=== PATIENT | male | born 1985 | race African-American/Black ===

== ENCOUNTER 2019-09-05 13:56 | Emergency (ER) | payer OTHER ==
[2019-09-05] MEDS ORDERED: ASPIRIN 81 MG TABLET, CHEWABLE PO ONE (14:17)
--- NOTE | 2019-09-05 14:17 | ER Document Report ---
ED Medical Screen (RME) - General Stated Complaint: CHEST PAIN Time Seen by Provider: 09/05/19 14:14 Mode of Arrival: Ambulatory Information source: Patient Notes: This 33-year-old male with history of pericarditis and hypertension presents emergency department with left-sided chest pain for the past week. Reports it comes and goes that sharp when it comes. Denies fever vomiting diarrhea. Reports he may have had a fever couple days ago. Denies cough runny nose. EKG did show sinus rhythm some ST elevation in lead I I have greeted and performed a rapid initial assessment of this patient. A comprehensive ED assessment and evaluation of the patient, analysis of test results and completion of the medical decision making process will be conducted by additional ED providers. Dictation of this chart was performed using voice recognition software; therefore, there may be some unintended grammatical errors. TRAVEL OUTSIDE OF THE [place] IN LAST 30 DAYS: No - Related Data Allergies/Adverse Reactions: No Known Allergies Allergy (Verified 09/05/19 14:14) Past Medical History Pulmonary Medical History: Reports: Hx Asthma Neurological Medical History: Reports: Hx Migraine - Immunizations Immunizations up to date: Yes Hx Diphtheria, Pertussis, Tetanus Vaccination: Yes
[2019-09-05 14:46] LABS: ABSOLUTE EOSINOPHILS # (AUTO) 0.1 10^3/uL (0.0-0.6); ABSOLUTE LYMPHOCYTES (AUTO) 1.4 10^3/uL (0.5-4.7); ABSOLUTE MONOCYTES (AUTO) 0.4 10^3/uL (0.1-1.4); ABSOLUTE NEUT (AUTO) 2.3 10^3/uL (1.7-8.2); BASOPHILS % (AUTO) 0.8 % (0-2); EOSINOPHILS % (AUTO) 1.6 % (0-6); HEMOGLOBIN 15.3 g/dL (13.5-17.0); MEAN CORPUSCULAR HEMOGLOBIN 27.3 pg (27.0-33.4); MEAN CORPUSCULAR HGB CONC 33.3 g/dL (32.0-36.0); MEAN CORPUSCULAR VOLUME 82 fl (80-97); MONOCYTES % (AUTO) 8.4 % (3-13); PLATELET COUNT 255 10^3/uL (150-450); RED BLOOD COUNT 5.61 10^6/uL (4.35-5.55); RED CELL DISTRIBUTION WIDTH 13.4 % (11.5-14.0); SEGMENTED NEUTROPHILS % (AUTO) 55.2 % (42-78); TOTAL CELLS COUNTED % (AUTO) 100 %; WHITE BLOOD COUNT 4.2 10^3/uL (4.0-10.5)
[2019-09-05 15:04] LABS: ALBUMIN 4.6 g/dL (3.5-5.0); ALKALINE PHOSPHATASE 51 U/L (38-126); ANION GAP 11 (5-19); ASPARTATE AMINO TRANSFERASE 33 U/L (17-59); BILIRUBIN,DIRECT 0.1 mg/dL (0.0-0.4); BILIRUBIN,TOTAL 0.6 mg/dL (0.2-1.3); BLOOD UREA NITROGEN 14 mg/dL (7-20); CALCIUM 10.2 mg/dL (8.4-10.2); CARBON DIOXIDE 25 mmol/L (22-30); CHLORIDE 105 mmol/L (98-107); CREATINE KINASE 161 U/L (55-170); GLUCOSE 95 mg/dL (75-110); POTASSIUM 4.1 mmol/L (3.6-5.0); TOTAL PROTEIN 7.9 g/dL (6.3-8.2)
[2019-09-05 15:17] LABS: CREATINE KINASE MB 1.07 ng/mL (<4.55)
[2019-09-05 15:18] LABS: TROPONIN I < 0.012 ng/mL
--- NOTE | 2019-09-05 15:26 | RADIOLOGY REPORT (SQ) ---
EXAM DESCRIPTION: CHEST 2 VIEWS COMPLETED DATE/TIME: 09/05/2019 3:08 pm REASON FOR STUDY: chest pain COMPARISON: PA and lateral views of the chest from 02/21/2015. EXAM PARAMETERS: NUMBER OF VIEWS: two views TECHNIQUE: Digital Frontal and Lateral radiographic views of the chest acquired. RADIATION DOSE: NA LIMITATIONS: none FINDINGS: LUNGS AND PLEURA: No consolidation, pleural effusion or pneumothorax. MEDIASTINUM AND HILAR STRUCTURES: No mediastinal or hilar contour abnormality. HEART AND VASCULAR STRUCTURES: The cardiac silhouette and pulmonary vasculature are within normal stewart its. BONES: No acute findings. HARDWARE: None. OTHER: No other finding. IMPRESSION: No acute cardiopulmonary process. TECHNICAL DOCUMENTATION: JOB ID: [id number] [employer]- All Rights Reserved Reading location - IP/workstation name: [email or web address]
--- NOTE | 2019-09-05 15:33 | EKG REPORT ---
SEVERITY:- NORMAL ECG - SINUS RHYTHM ST ELEV, PROBABLE NORMAL EARLY REPOL PATTERN : Confirmed by: Parth Harmon MD 05-Sep-2019 15:32:41
[2019-09-05] MEDS ORDERED: KETOROLAC TROMETHAMINE 60 MG/2 ML SDV IM ONE (15:56)
[2019-09-05] MEDS ORDERED: ALBUTEROL SULFATE HFA (90 MCG/PUFF) 8 GM MDI (1 MDI/ER DISP) IH ONE (15:57)
--- NOTE | 2019-09-05 15:57 | ER Document Report ---
ED General - General Chief Complaint: Chest Pain Stated Complaint: CHEST PAIN Time Seen by Provider: 09/05/19 14:14 Mode of Arrival: Ambulatory TRAVEL OUTSIDE OF THE [place] IN LAST 30 DAYS: No - HPI Notes: Patient presents 4 to 5 days of intermittent sharp pleuritic pain nonradiating with no cough congestion fevers or illnesses. Patient states she has a history of asthma and hypertension the past but does not take any medications. He states he does have a history of pericarditis but cannot tell me much about it that was diagnosed approximately 5 years ago. Otherwise no known medical history of than what discussed. Upon discussion, patient is also PERC negative. - Related Data Allergies/Adverse Reactions: No Known Allergies Allergy (Verified 09/05/19 14:14) Past Medical History - General Information source: Patient - Social History Smoking Status: Never Smoker Chew tobacco use (# tins/day): No Frequency of alcohol use: Occasional Family History: Arthritis, CVA, Hyperlipidemia, Hypertension, Other - pulmonary clots, Patient has suicidal ideation: No Patient has homicidal ideation: No - Past Medical History Cardiac Medical History: Reports: Hx Hypertension Pulmonary Medical History: Reports: Hx Asthma Neurological Medical History: Reports: Hx Migraine - Immunizations Immunizations up to date: Yes Hx Diphtheria, Pertussis, Tetanus Vaccination: Yes Review of Systems - Review of Systems Constitutional: No symptoms reported EENT: No symptoms reported Cardiovascular: See HPI Respiratory: No symptoms reported Gastrointestinal: No symptoms reported Genitourinary: No symptoms reported Male Genitourinary: No symptoms reported Musculoskeletal: No symptoms reported Skin: No symptoms reported Hematologic/Lymphatic: No symptoms reported Neurological/Psychological: No symptoms reported Physical Exam - Vital signs Vitals: Temp Pulse Resp BP Pulse Ox 98.1 F 68 16 138/78 H 96 09/05/19 14:13 09/05/19 14:13 09/05/19 14:13 09/05/19 14:13 09/05/19 14:13 - General General appearance: Appears well, Alert - HEENT Head: Normocephalic, Atraumatic - Respiratory Respiratory status: No respiratory distress Chest status: Nontender Breath sounds: Normal Chest palpation: Normal - Cardiovascular Rhythm: Regular Heart sounds: Normal auscultation Murmur: No Friction rub: No Paulette's crunch: No Gallop: None auscultated - Abdominal Inspection: Normal Distension: No distension Bowel sounds: Normal Tenderness: Nontender Course - Re-evaluation Re-evalutation: 09/05/19 15:55 EKG no concerning signs for acute STEMI or acute pericarditis because there is no NJ depression. Also, his pleuritic pain is intermittent in nature. He denies any smoking. Last congestion no recent fever. Work-up in progress this time will provide anti-inflammatories as well as an albuterol puffer and reassess 09/05/19 16:46 Symptoms improved with anti-inflammatory Toradol. All labs within normal limits no significant findings on chest x-ray no concerning findings as discussed on EKG. Will provide 5 days naproxen also provide albuterol puffer if his pleuritic pain were to re-present and he is to try an albuterol puffer to see if this helps in addition to anti-inflammatories. He is to follow-up with medical reevaluation in the next 3 to 5 days if symptoms not improving or worsening. Return precautions provided - Vital Signs Vital signs: Temp Pulse Resp BP Pulse Ox 98.1 F 68 14 122/75 96 09/05/19 14:13 09/05/19 14:13 09/05/19 16:01 09/05/19 16:01 09/05/19 14:13 - Laboratory Result Diagrams: 09/05/19 14:22 09/05/19 14:22 Laboratory results interpreted by me: 09/05/19 14:22 RBC 5.61 H - Diagnostic Test Radiology reviewed: Reports reviewed - EKG Interpretation by Me EKG shows normal: Sinus rhythm Rate: Normal Rhythm: NSR - Diffuse ST elevation with no NJ depression no ST depression as well. No concerning signs for acute STEMI or pericarditis. Discharge - Discharge Clinical Impression: Chest pain, pleuritic Condition: Good Disposition: HOME, SELF-CARE Additional Instructions: Please use 2 puffs of inhaler provided every 4 hours as needed for symptoms. Please take all anti-inflammatories as prescribed. Prescriptions: Naproxen 500 mg PO BID #10 tablet
[2019-09-05 17:03] VITALS: BP 130/93
== END 2019-09-05 17:09 | disposition home or self-care (01) ==
LOC: ER 13:56
DX: R07.81 Pleurodynia (principal); I10 Essential (primary) hypertension
CPT/HCPCS: 93005; 99285; 96372; 36415; 82553; 82550; 85025; 80053; 84484; 71046; 93010; J1885; J3490

== ENCOUNTER 2020-07-15 09:08 | Emergency (ER) | payer OTHER ==
[2020-07-15 09:25] LABS: ABSOLUTE EOSINOPHILS # (AUTO) 0.1 10^3/uL (0.0-0.6); ABSOLUTE LYMPHOCYTES (AUTO) 1.7 10^3/uL (0.5-4.7); ABSOLUTE MONOCYTES (AUTO) 0.4 10^3/uL (0.1-1.4); ABSOLUTE NEUT (AUTO) 2.3 10^3/uL (1.7-8.2); BASOPHILS % (AUTO) 0.3 % (0-2); EOSINOPHILS % (AUTO) 1.8 % (0-6); HEMATOCRIT 44.6 % (37.9-51.0); HEMOGLOBIN 15.4 g/dL (13.5-17.0); LYMPHOCYTES % (AUTO) 38.3 % (13-45); MEAN CORPUSCULAR HEMOGLOBIN 28.1 pg (27.0-33.4); MEAN CORPUSCULAR HGB CONC 34.4 g/dL (32.0-36.0); MEAN CORPUSCULAR VOLUME 82 fl (80-97); MONOCYTES % (AUTO) 8.7 % (3-13); PLATELET COUNT 258 10^3/uL (150-450); RED BLOOD COUNT 5.47 10^6/uL (4.35-5.55); RED CELL DISTRIBUTION WIDTH 13.3 % (11.5-14.0); SEGMENTED NEUTROPHILS % (AUTO) 50.9 % (42-78); TOTAL CELLS COUNTED % (AUTO) 100 %; WHITE BLOOD COUNT 4.5 10^3/uL (4.0-10.5)
[2020-07-15] MEDS ORDERED: KETOROLAC TROMETHAMINE INJ/PF 30 MG/1 ML SDV IV ONE (09:35)
[2020-07-15 09:42] LABS: ALBUMIN 4.5 g/dL (3.5-5.0); ALKALINE PHOSPHATASE 53 U/L (38-126); ANION GAP 8 (5-19); ASPARTATE AMINO TRANSFERASE 28 U/L (17-59); BILIRUBIN,DIRECT 0.3 mg/dL (0.0-0.4); BILIRUBIN,TOTAL 0.8 mg/dL (0.2-1.3); BLOOD UREA NITROGEN 9 mg/dL (7-20); CALCIUM 9.7 mg/dL (8.4-10.2); CARBON DIOXIDE 28 mmol/L (22-30); CHLORIDE 102 mmol/L (98-107); CREATINE KINASE 121 U/L (55-170); GLUCOSE 93 mg/dL (75-110); POTASSIUM 4.1 mmol/L (3.6-5.0); TOTAL PROTEIN 7.7 g/dL (6.3-8.2)
--- NOTE | 2020-07-15 09:44 | ER Document Report ---
ED General - General Chief Complaint: Chest Pain Stated Complaint: ABDOMINAL PAIN Time Seen by Provider: 07/15/20 09:16 Primary Care Provider: GLORIA EMERSON PA-C [Primary Care Provider] - Follow up as needed TRAVEL OUTSIDE OF THE [place] IN LAST 30 DAYS: No - HPI Notes: Chief complaint: Chest pain History of present illness: 34-year-old male seen at [facility] urgent care by Dr. De Jesus with chest pain and sent to the ED by EMS for further evaluation. Patient reports onset of discomfort about 5 days ago and it is intermittent sharp in nature and localized to the left anterior chest area without radiation. Intensity 3/10. It is aggravated by movement, deep breathing, and touching the area. There is no associated cough, shortness of breath, diaphoresis, hemoptysis or any radiation of the pain. Not related to exertion. Patient does occasionally have some reflux symptoms although this is not bothering him at the moment. Treating physician at urgent care obtain an EKG showing mild ST elevations V1 through V3 which appears to be consistent with early repolarization. He comments on the tracing copy that was sent that he had no prior EKG for comparison. Patient was given 2 sublingual nitroglycerin at the urgent care center as well as aspirin. He was given additional sublingual nitroglycerin during transport by EMS. This had no effect on his discomfort. Patient's blood pressure at the urgent care center was 145/95. Patient has past history of hypertension and took an unknown hypertensive for several years. Says he stopped this about 6 months ago due to "stubbornness". He denies any known history of diabetes. No history of hyperlipidemia. He is a non-smoker. He denies any use of cocaine. Family history is negative for CAD. Family history is negative for thromboembolic disease. Patient has no personal history of thromboembolic disease. Patient states that he did have pericarditis for which she was hospitalized a bout 7 years ago. He said that pain was "different" and much more severe. 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 HEART Score: HISTORY 1 ECG 1 AGE 1 RISK FACTORS 1 TROPONIN 0 TOTAL: 3 If HEART score is = 3 AND both tronponin measurments are normal, the 30 day risk of a major adverse cardiac event (all-cause mortality, myocardia infarction or need for coronary revscularization) is < 1% (Sensitivity 100%, NPV 100%). PERC SCORE NEGATIVE H no hormone administration A Age less than 50 D NO DVT/PE previously C no hemoptysis L no lower extremity edema O O2 sat greater than 95% T no tachycardia S no recent surgery/Trauma - Related Data Allergies/Adverse Reactions: No Known Allergies Allergy (Verified 09/05/19 14:14) Past Medical History - General Information source: Patient, [facility] Records - Social History Smoking Status: Never Smoker Frequency of alcohol use: None Drug Abuse: None Lives with: Family Family History: Arthritis, CVA, Hyperlipidemia, Hypertension, Other - pulmonary clots,. denies: CAD Patient has homicidal ideation: No - Past Medical History Cardiac Medical History: Reports: Hx Hypertension Denies: Hx Hypercholesterolemia Pulmonary Medical History: Reports: Hx Asthma Neurological Medical History: Reports: Hx Migraine Endocrine Medical History: Denies: Hx Diabetes Mellitus Type 1, Hx Diabetes Mellitus Type 2 Past Surgical History: Reports: None - Immunizations Immunizations up to date: Yes Hx Diphtheria, Pertussis, Tetanus Vaccination: Yes Review of Systems - Review of Systems Notes: Constitutional: Negative for fever. HENT: Negative for sore throat. Eyes: Negative for visual changes. Cardiovascular: As per HPI. Respiratory: As per HPI. Gastrointestinal: As per HPI. Genitourinary: Negative for dysuria. Musculoskeletal: Negative for back pain. Skin: Negative for rash. Neurological: Negative for headaches, weakness or numbness. 10 point ROS negative except as marked above and in HPI. Physical Exam - Vital signs Vitals: Temp Resp BP Pulse Ox 98.4 F 21 H 128/85 H 98 07/15/20 09:20 07/15/20 09:20 07/15/20 09:20 07/15/20 09:20 - Notes Notes: GENERAL: Well-developed well-nourished male approximately stated age appearing in no acute distress. SKIN: Good turgor no rashes. HEAD: Normocephalic atraumatic. EYES: PERRLA. EOMI. Conjunctivae and sclerae clear. EARS: CANALS AND TMS CLEAR. NOSE: CLEAR. MOUTH: Moist mucosa. Good dentition. No stridor or edema. No drooling. NECK: Supple. No masses or thyromegaly. No adenopathy. Carotids 2+ without bruits. No JVD. BACK: Symmetrical without tenderness. CHEST: Respirations unlabored. Breath sounds clear and symmetrical. HEART: Exquisite tenderness left anterior chest wall along left costal margin which EXACTLY reproduces his pain. Regular rhythm. No murmur gallop or rub. ABDOMEN: Soft nontender without masses, organomegaly or rebound. Bowel sounds normally active. No bruits. GENITALIA: Deferred. EXTREMITIES: No edema. No calf tenderness. Cap refill less than 1.5 seconds. Dorsalis pedis and posterior tibial pulses 3+ and symmetrical. NEUROLOGICAL: GCS 15. Alert and oriented x3. Normal gait. Fluent speech. Cranial nerves II through XII intact. Sensorimotor and cerebellar normal. Normal tone. PSYCHIATRIC: Appropriate affect. Course - Re-evaluation Re-evalutation: 07/15/20 13:22 EKG shows early repolarization only. 2- troponins 3 hours apart. Heart score of 3. PERC negative. His pain appears to be of musculoskeletal origin. Patient is stable for outpatient management and follow-up primary care physician. I will place him on an oral NSAID. Findings, clinical impression and plan of treatment have been discussed with patient/family. Understanding of current findings and recommendations has been acknowledged by them and there is agreement regarding disposition and follow-up. - Vital Signs Vital signs: Temp Pulse Resp BP Pulse Ox 98.4 F 25 H 142/87 H 98 07/15/20 09:23 07/15/20 12:01 07/15/20 12:01 07/15/20 12:01 - Laboratory Result Diagrams: 07/15/20 08:57 07/15/20 08:57 Laboratory results interpreted by me: 07/15/20 08:57 ALT 57 H - Diagnostic Test Radiology reviewed: Reports reviewed - Normal portable chest x-ray per radiologist - EKG Interpretation by Me Additional EKG results interpreted by me: 07/15/20 09:47 Twelve-lead EKG from 0917 hrs. is reviewed contemporaneously by me. Indication for EKG: Chest pain Normal sinus rhythm. Rate 67. Normal intervals. Normal QRS axis +[address] elevations V1 through V3 and pattern consistent with early repolarization. Comparison with prior study of 09/05/2019 shows no significant interval change with repolarization changes also identified on that tracing. Interpretation: Normal sinus rhythm with early repolarization pattern Discharge - Discharge Clinical Impression: Chest wall pain Condition: Stable Disposition: HOME, SELF-CARE Instructions: Chest Wall Pain ([facility]) Additional Instructions: Return here as needed for new or worsening symptoms: Pain that is worsening or unimproved Uncontrolled vomiting High fever or shaking chills Overall worsening See your primary care provider for follow-up within the next 48 hours. Prescriptions: Ketorolac Tromethamine [Toradol 10 mg Tablet] 10 mg PO Q6HP PRN 10 Days #20 tablet PRN Reason: Albuterol Sulfate [Proair HFA Inhalation Aerosol 8.5 gm MDI] 2 puff IH Q4H PRN #1 mdi PRN Reason: Referrals: GLORIA EMERSON PA-C [Primary Care Provider] - Follow up as needed
--- NOTE | 2020-07-15 09:48 | RADIOLOGY REPORT (SQ) ---
EXAM DESCRIPTION: CHEST SINGLE VIEW IMAGES COMPLETED DATE/TIME: 07/15/2020 9:25 am REASON FOR STUDY: chest pain COMPARISON: 09/05/2019. NUMBER OF VIEWS: One view. TECHNIQUE: Single frontal radiographic view of the chest acquired. LIMITATIONS: None. FINDINGS: LUNGS AND PLEURA: No opacities, masses or pneumothorax. No pleural effusion. MEDIASTINUM AND HILAR STRUCTURES: No masses. Contour normal. HEART AND VASCULAR STRUCTURES: Heart normal in size. Normal vasculature. BONES: No acute findings. HARDWARE: None in the chest. OTHER: No other significant finding. IMPRESSION: NO SIGNIFICANT RADIOGRAPHIC FINDING IN THE CHEST. TECHNICAL DOCUMENTATION: JOB ID: [id number] 2010 [employer]- All Rights Reserved Reading location - IP/workstation name: [email or web address]
[2020-07-15 09:54] LABS: CREATINE KINASE MB 0.63 ng/mL (<4.55); TROPONIN I < 0.012 ng/mL
[2020-07-15 13:33] VITALS: BP 133/89
--- NOTE | 2020-07-16 08:50 | EKG REPORT ---
SEVERITY:- NORMAL ECG - SINUS RHYTHM ST ELEV, PROBABLE NORMAL EARLY REPOL PATTERN : Confirmed by: Payam Bradshaw MD 16-Jul-2020 08:48:59
== END 2020-07-15 13:33 | disposition home or self-care (01) ==
LOC: ER 09:08
DX: R07.89 Other chest pain (principal); I10 Essential (primary) hypertension
CPT/HCPCS: 93005; 99285; 96374; 36415; 82553; 82550; 85025; 80053; 84484; 71045; 93010; J1885